=== PATIENT | male | born 1985 | race Caucasian/White ===

== ENCOUNTER 2024-06-20 09:47 | Emergency (ER) | payer BC ==
[~2024-06-20] VITALS: Ht 180.3 cm; Wt 102.1 kg
[2024-06-20 09:53] VITALS: BP_SYST 133; PULSE 85; RESP 18; TEMP 98.3; O2SAT 98
== END 2024-06-20 11:31 | disposition home or self-care (01) ==
LOC: SED 09:47
DX: S50.351A Superficial foreign body of right elbow, initial encounter (principal); W34.09XA Accidental discharge from other specified firearms, initial encounter; Y93.89 Activity, other specified; Y92.89 Other specified places as the place of occurrence of the external cause; Y99.8 Other external cause status
CPT/HCPCS: 99283